=== PATIENT | male | born 1960 | race Caucasian/White ===

== ENCOUNTER 2017-03-13 20:58 | Observation (INO) | payer OTHER ==
[~2017-03-13] VITALS: Ht 170.2 cm; Wt 72.7 kg
--- NOTE | 2017-03-13 21:53 | ED ORDER SUMMARY ---
..... Patient: CONNIE MISTRY OrderSheet [facility] VisitID: [id number] [place] [address] 56y, M Registration Date/Time: 03/13/2017 ORDER SHEET Weight: 72.5 kg (stated) Allergies: No Known Drug Allergy GENERAL ORDERS: Chest 2V Urgent (21:17 03/13/2017 PHutchinson DO) (Ack 21:18 RKaruga) Food Service Specialist (Continuous) (21:17 03/13/2017 PHutchinson DO) (21:17 RKaruga) UA-Culture if indicated Urgent (21:17 03/13/2017 PHutchinson DO) (Ack 21:18 RKaruga) (22:03 Temitope R.N.) Cardiac Panel Stat (21:17 03/13/2017 PHutchinson DO) (Ack 21:18 RKaruga) BNP Urgent (21:17 03/13/2017 PHutchinson DO) (Ack 21:18 RKaruga) D-Dimer Urgent (21:17 03/13/2017 PHutchinson DO) (Ack 21:18 RKaruga) Amylase Urgent (21:17 03/13/2017 PHutchinson DO) (Ack 21:18 RKaruga) PT with INR Urgent (21:17 03/13/2017 PHutchinson DO) (Ack 21:18 RKaruga) Pulse oximeter (21:17 03/13/2017 PHutchinson DO) (21:17 RKaruga) EKG - ER Stat (21:17 03/13/2017 PHutchinson DO) (21:17 RKaruga) Vitals (21:17 03/13/2017 PHutchinson DO) (22:13 Jimmieou R.N.) Call (Place call to): (Dr Pisano) (21:52 03/13/2017 PHutchinson DO) (22:22 RKaruga) MEDICATION ORDERS: NitroGLYCERIN Paste Topical 1.5 in. (NOW, to ) (21:49 03/13/2017 PHutchinson DO) (22:03 Portiambou R.N.) Lovenox Subcut 80 mg (HIGH ALERT MEDICATION, NOW) (21:54 03/13/2017 Saranya VIGIL) (22:07 Flako R.N.) IV FLUIDS: IV NS : initial bolus 500 mL (1000 mL/hr), then 250 mL/hr for X2 (NOW) (21:17 03/13/2017 Saranya VIGIL) (21:25 Flako R.N.) ORDER SHEET NOTES: [Electronically signed by Conrad Ponce DO (00:15 03/14/2017)] [Electronically signed by Aung Rabago R.N. (19:09 03/14/2017)] [Electronically locked/signed by Aung Rabago R.N. (19:09 03/14/2017)]
--- NOTE | 2017-03-13 21:53 | ED ORDER SUMMARY ---
..... Patient: CONNIE MISTRY OrderSheet [facility] VisitID: [id number] [place] [address] 56y, M Registration Date/Time: 03/13/2017 ORDER SHEET Weight: 72.5 kg (stated) Allergies: No Known Drug Allergy GENERAL ORDERS: Chest 2V Urgent (21:17 03/13/2017 PHutchinson DO) (Ack 21:18 RKaruga) Shoe Lay Out Planner (Continuous) (21:17 03/13/2017 PHutchinson DO) (21:17 RKaruga) UA-Culture if indicated Urgent (21:17 03/13/2017 PHutchinson DO) (Ack 21:18 RKaruga) (22:03 Temitope R.N.) Cardiac Panel Stat (21:17 03/13/2017 PHutchinson DO) (Ack 21:18 RKaruga) BNP Urgent (21:17 03/13/2017 PHutchinson DO) (Ack 21:18 RKaruga) D-Dimer Urgent (21:17 03/13/2017 PHutchinson DO) (Ack 21:18 RKaruga) Amylase Urgent (21:17 03/13/2017 PHutchinson DO) (Ack 21:18 RKaruga) PT with INR Urgent (21:17 03/13/2017 PHutchinson DO) (Ack 21:18 RKaruga) Pulse oximeter (21:17 03/13/2017 PHutchinson DO) (21:17 RKaruga) EKG - ER Stat (21:17 03/13/2017 PHutchinson DO) (21:17 RKaruga) Vitals (21:17 03/13/2017 PHutchinson DO) (22:13 Jimmieou R.N.) Call (Place call to): (Dr Pisano) (21:52 03/13/2017 PHutchinson DO) (22:22 RKaruga) MEDICATION ORDERS: NitroGLYCERIN Paste Topical 1.5 in. (NOW, to ) (21:49 03/13/2017 PHutchinson DO) (22:03 Portiambou R.N.) Lovenox Subcut 80 mg (HIGH ALERT MEDICATION, NOW) (21:54 03/13/2017 Saranya VIGIL) (22:07 Flako R.N.) IV FLUIDS: IV NS : initial bolus 500 mL (1000 mL/hr), then 250 mL/hr for X2 (NOW) (21:17 03/13/2017 Saranya VIGIL) (21:25 Flako R.N.) ORDER SHEET NOTES: [Electronically signed by Conrad Ponec DO (00:15 03/14/2017)] [Electronically signed by Aung Rabago R.N. (19:09 03/14/2017)] [Electronically locked/signed by Aung Rabago R.N. (19:09 03/14/2017)]
--- NOTE | 2017-03-13 21:53 | ED CLINICAL REPORT ---
Clinical Report - Physicians/Mid Levels [facility] [address] [place] [address] 03/13/2017 21:02 Patient: CONNIE MISTRY Time Seen: 21:15. Arrived- By ambulance. Historian- patient and EMS personnel. HISTORY OF PRESENT ILLNESS Chief Complaint: CHEST DISCOMFORT. At its maximum, severity described as severe. When seen in the E.D., it was almost gone. Modifying factors- worsened by exertion. Relieved by rest. It is described as pressure and it is described as located in the central chest area. No radiation. This started about 5 days ago intermittently, but last episode occured about 2 1/2 hours ago and is still present. It was gradual in onset and has been waxing/waning. Onset during moderate exertion. No nausea, vomiting, difficulty breathing or diaphoresis. Similar symptoms previously: Recent medical care: Not recently seen/assessed. REVIEW OF SYSTEMS No fever, chills, cough, pedal edema or calf pain. No fainting episodes, headache, sore throat, blurred vision or abdominal pain. No black stools, difficulty with urination, skin rash, enlarged lymph nodes or bloody stools. All systems otherwise negative, except as recorded above. PAST HISTORY See nurses notes. No history of aortic disease, heart rhythm problems or pulmonary embolism. ( Chest pain syndrome (reportedly had low risk stress test about 2 years ago)). SOCIAL HISTORY Smoker- current status unknown. No alcohol use or drug use. Is a local resident. ADDITIONAL NOTES The nursing notes have been reviewed. PHYSICAL EXAM Vital Signs: 03/13/2017 21:08 BP: 154/84. HR: 65. RR: 19. O2 saturation: 98%. Temp: 98.2 F. Pain level now: 09/19. Appearance: Alert. Oriented X3. No acute distress. Eyes: Pupils equal, round and reactive to light. Eyes normal inspection. No scleral icterus or pale conjunctivae. ENT: Pharynx normal. Neck: Normal inspection. Neck supple. CVS: Normal heart rate and rhythm. Heart sounds normal. Pulses normal. Respiratory: No respiratory distress. Breath sounds normal. No rales, rhonchi or wheezes. Abdomen: Soft and nontender. No mass. Back: Normal external inspection. Skin: Skin warm and dry. Normal skin color. Normal skin turgor. Extremities: Extremities exhibit normal ROM. No calf tenderness. No lower extremity edema. Neuro: Oriented X 3. No motor deficit. LABS, X-RAYS, AND EKG EKG: EKG time: (21:12). Normal sinus rhythm. Rate: 60. Normal P waves. Normal RUTH. Normal QRS complex. Normal axis. Normal ST and T waves. The study has been interpreted contemporaneously by me. The EKG appears to be a good tracing. Rhythm Strip #1: Normal sinus rhythm. Regular rhythm. Narrow QRS complexes. No ectopy. Chest X-ray: No acute disease. Normal lung markings present. Normal heart size. Mediastinum normal. Great vessels normal. No infiltrate. Views: PA and lateral. Technique: good. The X-rays were interpreted contemporaneously by me. Laboratory Tests: CBC w Diff: (MELINDA: 03/13/2017 21:12) ( [facility]13[facility] 21:28) Final results Test Result Flag Units (Reference) WHITE BLOOD COUNT 8.4 K/uL (4.5-11.5) RED BLOOD COUNT 4.49 L M/uL (4.50-5.90) HEMOGLOBIN 14.9 gm/dL (13.5-17.5) HEMATOCRIT 43.3 % (41.0-53.0) MEAN CELL VOLUME 96 fL (80-100) MEAN CORPUSCULAR HGB 33 pg (26-34) MEAN CORPUSCULAR HGB CONC 34 g/dL (31-37) RED CELL DISTRIBUTION WIDTH 12.4 % (11.6-14.8) PLATELET COUNT 222 K/uL (150-400) NEUTROPHIL % 60.1 % (50-75) LYMPH % 26.5 % (25-40) MONO % 8.6 % (3-14) EOSINOPHIL % 3.8 % (0-4) BASOPHIL % 1.0 % (0-2) PT with INR: (MELINDA: 03/13/2017 21:12) ( [facility] 03/13/2017 21:39) Final results Test Result Flag Units (Reference) INR 0.9 (0.8-1.2) Low Intensity Therapy: INR 1.5-2.0 PT range 18.5-23.1Mod.Intensity Therapy: INR 2.0-3.0 PT range 23.1-31.5High Intensity Therapy: INR 2.5-3.5 PT range 27.4-35.5High Intensity Therapy 2: INR 3.0-4.0 PT range 31.5-39.3 D-DIMER QUANTITATIVE < 0.27 L ug/mLFEU (0.27-0.52) The primary value of this quantitative assay relates toits negative predictive value (i.e. exclusion) of pulmonaryembolism/deep vein thrombosis/DIC.Elevated levels of d-dimer may also occur with:, age, cancer, inflammation, liver disease,post-op, infection, hematoma, coronary disease, peripheralarteriopathy, bleeding disorders and thrombolytic treatment.Results should be correlated with other clinical andradiological data.Testing Methodology: Latex Immunoassay BNP: (MELINDA: 03/13/2017 21:12) ( [facility] 03/13/2017 21:47) Final results Test Result Flag Units (Reference) B-TYPE NATRIURETIC PEPTIDE 97.4 pg/ml (5-100) Amylase: (MELINDA: 03/13/2017 21:12) ( [facility] 03/13/2017 21:39) Final results Test Result Flag Units (Reference) AMYLASE 40 U/L (25-115) CHEM 13 PANEL: (MELINDA: 03/13/2017 21:12) ( [facility] 03/13/2017 21:43) Final results Test Result Flag Units (Reference) GLUCOSE 97 mg/dL (70-110) BUN 12 mg/dL (7-18) CREATININE 0.8 mg/dL (0.6-1.3) Estimated GFR >60 mL/min Estimated GFR- >60 mL/min Note: Persistent reduction over 3 months in eGFR<60 mL/min/1.73 m2 defines CKD. Patients with eGFR values>=60 mL/min/1.73 m2 may also have CKD if evidence ofpersistent proteinuria. Additional information may be foundat [email or web address].org. SODIUM 143 mmol/L (136-145) POTASSIUM 3.9 mmol/L (3.5-5.1) CHLORIDE 106 mmol/L (98-107) CARBON DIOXIDE 28 mmol/L (21-32) CALCIUM 9.0 mg/dL (8.5-10.1) TOTAL PROTEIN 6.7 g/dL (6.4-8.2) ALBUMIN 3.6 g/dL (3.3-5.0) BILIRUBIN, TOTAL 0.3 mg/dL (0.0-1.0) ALKALINE PHOSPHATASE 105 U/L (46-116) AST (SGOT) 23 U/L (15-37) ALT (SGPT) 24 U/L (12-78) MAGNESIUM 2.0 mg/dL (1.8-2.4) CPK 107 U/L (24-260) TROPONIN I 0.65 ng/mL (0.00-1.5) TROPONIN REFERENCE RANGE:<0.1 NEGATIVE0.1-1.5 INDETERMINANT>1.5 POSITIVE . Pulse Oximetry: 03/13/2017 21:08 O2 saturation: 98%. (FIO2 - room air). Interpretation: normal. PROGRESS AND PROCEDURES Course of Care: Nitroglycerin 1.5 inches paste inches. ASA 325 mg taken prior to arrival PO given. Lovenox 80 mg subQ given. Patient is stable. The patient's symptoms are now gone. Physical exam findings are improved. Discussed case with hospitalist, (Shi call returned 22:28). Reviewed test results. Agreed upon treatment plan. Call placed to patient's primary care provider Aliya call placed 22:19 call returned 22:22. Patient/family counseled. Old ED records reviewed. Observation orders written. Disposition: Observation in Acute Care. Condition: stable. CLINICAL IMPRESSION Chest pain characterized as "discomfort" .12 lead EKG performed. indeterminate troponin I. (Electronically signed by Conrad Ponce DO 03/14/2017 0:15)
--- NOTE | 2017-03-13 21:53 | ED NURSING NOTES ---
Clinical Report - Nurses [facility] [place] [address] 03/13/2017 21:02 Patient: CONNIE MISTRY TRIAGE Triage time 21:10. Acuity: LEVEL 2. Chief Complaint: CHEST PAIN and DISCOMFORT. --21:15 Sheriff Klein R.N. 21:08 03/13/17. BP: 154/84. HR: 65. RR: 19 (regular). O2 saturation: 98%. Temp: 98.2 F. Pain level now: 09/19. --21:15 Sheriff Klein R.N. Weight: 72.5 kg stated. Height/Length: 67 inches Per Patient. BMI: 25.1. --21:09 Sheriff Klein R.N. Medications None. --21:14 Sheriff Klein R.N. Allergies No Known Drug Allergy. --21:14 Sheriff Klein R.N. History Arrived by EMS. Historian: patient. Unaccompanied. Onset. (2 1/2 hours ago). ( Patient was doing yard work, suddenly felt severe chest pressure 10/10. Pain 1/10 now. Took Asprin 424mg.). SURGERY HX: Neck surgery. SOCIAL HX: Light tobacco smoker- less than 1/2 a pack per day. No alcohol use or drug use. FALL RISK ASSESSMENT: Fall risk assessment completed. No fall risk identified. NUTRITIONAL RISK ASSESSMENT: The nutritional risk assessment revealed no deficiencies. FUNCTIONAL ASSESSMENT: Functional assessment: no impairments noted. LEARNING NEEDS ASSESSMENT: The learning needs assessment revealed no barriers. SKIN INTEGRITY ASSESSMENT: Skin integrity risk assessment completed. No skin integrity risk identified. --21:15 Sheriff Klein R.N. PROBLEMS: Lifestyle / Substance Problems. Atypical Chest Pain. Chest discomfort. --21:14 Sheriff Klein R.N. PHYSICAL ASSESSMENT Ambulatory to room. Patient gowned. GENERAL / NEURO / PSYCH: Alert. Oriented X 4. Appears in no acute distress. HEENT: Mucous membranes are pink. RESPIRATORY: Respirations not labored. CVS: Pulses within normal limits. Capillary refill less than 2 seconds. SKIN: Skin is warm and dry. --21:15 Sheriff Klein R.N. NURSING PROGRESS NOTES Patient gowned. Head of bed elevated. Two patient identifiers checked. Call light placed in reach. Side rails up x 2. Bed placed in lowest position. Brakes of bed on. --21:17 Sheriff Klein R.N. 21:14 03/13/2017 Site #1 started via IV in the left antecubital space with an 20g angiocath, with aseptic technique and good blood return; one attempt. Blood drawn: rainbow set. Labeled in the presence of the patient and sent to the lab. Saline lock flushed with 10 mL saline. --21:19 Sheriff Klein R.N. EKG time: (21:12). EKG was performed by a tech and shown to the ED physician. --21:24 Virginia Easley 21:25 03/13/2017 Started bag #1 500 mL IV Fluids IV NS (Saline); bolus of 500 mL wide open via site #1 via IV pump. Allergies verified and confirmed 5 rights. IV patency established. IV site checked: no pain, redness, or swelling. IV flushed thoroughly pre- and post-medication administration. --21:25 Sheriff Klein R.N. 22:03 03/13/2017 NITROGLYCERIN PASTE Topical Paste 1.5 inch. Applied to the right chest. Allergies verified and confirmed 5 rights. --22:03 Sheriff Klein R.N. 22:07 03/13/2017 Lovenox (Enoxaparin Sodium) Subcutaneous 80 mg given. Given in the right upper arm. Allergies verified and confirmed 5 rights. --22:07 Sheriff Klein R.N. 22:34 03/13/17. BP: 137/81. HR: 59. RR: 18. O2 saturation: 97%. --22:34 Sheriff Klein R.N. DISPOSITION / DISCHARGE Admitted (2352 PM). Transported via stretcher by nurse and transport team with IV. Report was given to a nurse via a phone call. Report included patient's care, treatment, medications, reviewed medication reconcilliation, and condition (including any recent changes or anticipated changes). All questions were answered. Report was acknowledged. Patient's personal items include: shirt, pants, socks and shoes; items were placed in belongings bag, given to the patient and transported with the patient. --23:53 Sheriff Klein R.N. 23:51 03/13/17. BP: 138/78. HR: 63. RR: 20. O2 saturation: 99%. --23:53 Sheriff Klein R.N. Locked/Released at 03/14/2017 19:09 by Aung Rabago R.N.
--- NOTE | 2017-03-13 22:07 | DIAGNOSTIC IMAGING REPORT ---
PROCEDURE: XR CHEST 2 VIEW INDICATION: CHEST PAIN TECHNIQUE: PA and lateral view. COMPARISON: None. FINDINGS: Lungs are clear. Cardiovascular structures are normal. Surgical fusion of the lower cervical spine. Mild degenerative changes of the spine. IMPRESSION: 1. Negative chest.
--- NOTE | 2017-03-14 00:02 | History & Physical Report ---
History Chief Complaint Chest pain History of Present Illness This is a [id number] white male who developed chest pain for last 4 days usually twice a day associated with activity pain is located in the center of the severity of 4 out of pain lasting up to 10 minutes at a time finding the patient decided to come to emergency because chest pain continue to happen. Chest pain is associated with shortness of breath and dizziness and sweats but no nausea no vomiting no palpitations Patient History 1. HTN (hypertension) 2. H/O neck surgery 3. H/O knee surgery 4. CTS (carpal tunnel syndrome) Social History Patient is , has 3 kids, lives with his . Smoking: One pack a day for 30 years, alcohol use: Social, illicit drug: None. Family History Relation not specified for: Heart Disease Hypertension Medications and Allergies Medications Home medications: None Current Medications Sig/Shaina Start time Last Medication Dose Route Stop Time Status Admin Atorvastatin Calcium 10 MG QPM 03/14 1800 AC PO Aspirin 325 MG DAILY 03/14 900 AC PO Enoxaparin Sodium 70 MG BID 03/14 900 AC SC Famotidine 20 MG Q12HR 03/14 900 AC PO Metoprolol Tartrate 25 MG DAILY 03/14 900 AC PO Nitroglycerin 0.5 GM Q6HR 03/14 0000 AC TOP Allergies Coded Allergies: NKA (03/13/17) Review of Systems Other No recent weight changes, no difficulty with vision or hearing, no sore throat or congestion or cough or runny nose, no nausea or vomiting no indigestion or abdominal pain normal regular bowel movements, no dysuria frequency or incontinence, complains of back pain and myalgia which are chronic, no headaches or dizziness or tingling or numbness no localized weakness or syncope Physical Exam General Appearance Alert, Oriented X3, No acute distress HEENT Normal exam Lungs Clear to auscultation Neck Supple, No JVD, No thyromegaly, 2+ carotid pulse wo bruit Cardiovascular Regular rate and rhythm, Normal S1 and S2, No murmurs, gallops, rubs Abdomen Normal bowel sounds, Soft, No tenderness Extremities No cyanosis, No edema, Normal pulses, No tenderness Skin No Rashes, No Significant Lesions Neurological Normal speech, Reflexes 2+ and equal, Cranial nerves intact, Strength 5/5 x4 ext's Psych/Mental Status Mental status normal, Mood normal LAB Results Laboratory Tests 03/13 Chemistry Plasma Sodium (136 - 145 mmol/L) 143 Plasma Potassium (3.5 - 5.1 mmol/L) 3.9 Plasma Chloride (98 - 107 mmol/L) 106 CO2 (Enzymatic) (21 - 32 mmol/L) 28 BUN (7 - 18 mg/dL) 12 Creatinine (0.6 - 1.3 mg/dL) 0.8 Est GFR ( Amer) (mL/min) >60 Est GFR (Non-Af Amer) (mL/min) >60 Glucose (70 - 110 mg/dL) 97 Plasma Calcium (8.5 - 10.1 mg/dL) 9.0 Plasma Magnesium (1.8 - 2.4 mg/dL) 2.0 Total Bilirubin (0.0 - 1.0 mg/dL) 0.3 AST (15 - 37 U/L) 23 ALT (12 - 78 U/L) 24 Alkaline Phosphatase (46 - 116 U/L) 105 Creatine Kinase (24 - 260 U/L) 107 Troponin (0.00 - 1.5 ng/mL) 0.65 B-Natriuretic Peptide (5 - 100 pg/ml) 97.4 Total Protein (6.4 - 8.2 g/dL) 6.7 Albumin (3.3 - 5.0 g/dL) 3.6 Amylase (25 - 115 U/L) 40 Coagulation INR (0.8 - 1.2) 0.9 D-Dimer, Quantitative (0.27 - 0.52 ug/mLFEU) < 0.27 Hematology WBC (4.5 - 11.5 K/uL) 8.4 RBC (4.50 - 5.90 M/uL) 4.49 Hgb (13.5 - 17.5 gm/dL) 14.9 Hct (41.0 - 53.0 %) 43.3 MCV (80 - 100 fL) 96 MCH (26 - 34 pg) 33 RDW (11.6 - 14.8 %) 12.4 Neut % (Auto) (50 - 75 %) 60.1 Lymph % (Auto) (25 - 40 %) 26.5 [place] % (Auto) (3 - 14 %) 8.6 Eos % (Auto) (0 - 4 %) 3.8 Baso % (Auto) (0 - 2 %) 1.0 Plt Count, EDTA (150 - 400 K/uL) 222 PUBS MCHC (31 - 37 g/dL) 34 Assessment and Plan Problem List 1. Acute coronary syndrome Plan Waiting to start patient on aspirin Lovenox and Lipitor and metoprolol and order cardiac enzymes series. Consider regular exercise stress test once the cardiac enzymes series are negative 2. HTN (hypertension) Plan We'll start metoprolol 25 mg and monitor blood pressure
[2017-03-14 00:07] VITALS: BP 130/91
[2017-03-14 03:45] VITALS: BP 123/68
[2017-03-14 06:49] VITALS: BP 116/67
--- NOTE | 2017-03-14 07:24 | Progress Note ---
Subjective General Chest pain admit w/ exertional CP at home over the last 3 days. Troponins indeterminant x2 and other labs ok. Constitutional Denies: Fever, Chills, Sweats, Weakness, Malaise, Other. Eyes Denies: Pain, Vision Change, Conjunctival Inflammation, Eyelid Inflammation, Redness. ENT Denies: Ear Pain, Ear Discharge, Nose Pain, Nasal Discharge, Nasal Congestion, Mouth Pain, Mouth Swelling, Throat Pain, Throat Swelling. Respiratory SOB w/exertion. Denies: Cough, Dry, Wheezing, Hemoptysis, Pleuritic Pain, Sputum. Cardiovascular Chest Pain (resolved), Light-headedness. Denies: Palpitations, Orthopnea, PND, Edema. Gastrointestinal Denies: Nausea, Vomiting, Abdominal Pain, Diarrhea, Constipation, Melena, Hematochezia. Genitourinary Denies: Dysuria, Frequency, Incontinence, Hematuria, Retention. Skin Denies: Rash, Lesions, Jaundice, Bruising. Neurological Denies: Weakness, Numbness, Incoordination, Change in speech, Confusion, Seizures. Physical Exam Vital Signs / I&Os Vital Signs Date Time Temp Pulse Resp B/P Pulse O2 O2 Flow FiO2 Ox Delivery Rate 03/14 0649 98.4 53 18 116/67 96 Room Air 03/14 0345 98.8 53 18 123/68 94 Room Air 03/14 0007 97.7 64 18 130/91 96 Room Air General Appearance Alert, Oriented X3, Cooperative, No acute distress HEENT Normal exam, Moist mucous membranes Lungs Normal exam, Clear to auscultation Neck Supple, No JVD, No lymphadenopathy, 2+ carotid pulse wo bruit Cardiovascular Normal exam, Regular rate and rhythm, Normal S1 and S2, No murmurs, gallops, rubs Abdomen Normal exam, Normal bowel sounds, Soft, No tenderness Extremities Normal exam, No cyanosis, No clubbing, No edema, Normal pulses Skin No Rashes, No Breakdown Neurological Normal exam, Strength 5/5 x4 ext's, No lateralizing signs Psych/Mental Status Mental status normal, Mood normal LAB Results Laboratory Tests 03/13 03/13 03/13 03/14 03/14 2112 2112 2112 0535 0535 Chemistry Plasma Sodium (136 - 145 mmol/L) 143 144 Plasma Potassium (3.5 - 5.1 mmol/L) 3.9 3.9 Plasma Chloride (98 - 107 mmol/L) 106 108 CO2 (Enzymatic) (21 - 32 mmol/L) 28 29 BUN (7 - 18 mg/dL) 12 11 Creatinine (0.6 - 1.3 mg/dL) 0.8 0.8 Est GFR ( Amer) (mL/min) >60 >60 Est GFR (Non-Af Amer) (mL/min) >60 >60 Glucose (70 - 110 mg/dL) 97 92 Plasma Calcium (8.5 - 10.1 mg/dL) 9.0 8.5 Plasma Magnesium (1.8 - 2.4 mg/dL) 2.0 Total Bilirubin (0.0 - 1.0 mg/dL) 0.3 AST (15 - 37 U/L) 23 ALT (12 - 78 U/L) 24 Alkaline Phosphatase (46 - 116 U/L) 105 Creatine Kinase (24 - 260 U/L) 107 Troponin (0.00 - 1.5 ng/mL) 0.65 0.81 B-Natriuretic Peptide (5 - 100 pg/ml) 97.4 Total Protein (6.4 - 8.2 g/dL) 6.7 Albumin (3.3 - 5.0 g/dL) 3.6 Triglycerides (30 - 200 mg/dL) 84 Cholesterol (140 - 200 mg/dL) 120 LDL Cholesterol, Calc (mg/dL) 64 HDL Cholesterol (32 - 96 mg/dL) 40 LDL/HDL Ratio 1.6 Cholesterol/HDL Ratio 3.0 Coronary Risk Interp (0.4 - 1.0) 0.6 Amylase (25 - 115 U/L) 40 Coagulation INR (0.8 - 1.2) 0.9 D-Dimer, Quantitative (0.27 - 0.52 ug/mLFEU) < 0.27 Hematology WBC (4.5 - 11.5 K/uL) 8.4 8.2 RBC (4.50 - 5.90 M/uL) 4.49 4.30 Hgb (13.5 - 17.5 gm/dL) 14.9 14.1 Hct (41.0 - 53.0 %) 43.3 41.5 MCV (80 - 100 fL) 96 97 MCH (26 - 34 pg) 33 33 RDW (11.6 - 14.8 %) 12.4 12.2 Neut % (Auto) (50 - 75 %) 60.1 56.2 Lymph % (Auto) (25 - 40 %) 26.5 29.1 [place] % (Auto) (3 - 14 %) 8.6 10.5 Eos % (Auto) (0 - 4 %) 3.8 3.7 Baso % (Auto) (0 - 2 %) 1.0 0.5 Plt Count, EDTA (150 - 400 K/uL) 222 212 PUBS MCHC (31 - 37 g/dL) 34 34 Assessment and Plan Problem List 1. Chest pain Plan NM exercise stress test today. Discussed w/ Dr. sOullivan. Echocardiogram 2. INDETERMINATE TROPININ I Plan Repeat CK and Troponin 1 more time
[2017-03-14 10:55] VITALS: BP 133/80
--- NOTE | 2017-03-14 12:44 | Provider's Discharge Care Plan ---
Problem, Goal, Plan Problem List 1. Acute coronary syndrome Goals: Improve disease control Instructions: TRANSFER TO [facility]- CARDIOLOGY.
--- NOTE | 2017-03-14 12:44 | Provider's Discharge Care Plan ---
Problem, Goal, Plan Problem List 1. Acute coronary syndrome Goals: Improve disease control Instructions: TRANSFER TO [facility]- CARDIOLOG[facility].
--- NOTE | 2017-03-14 15:46 | DIAGNOSTIC IMAGING REPORT ---
REFERRING PHYSICIAN/PROVIDER: Florian Osullivan MD CONSULTING PLASTER PATTERNMAKER: Steve Mares MD PROCEDURE: M-mode 2D echocardiography with spectral and color flow Doppler TECHNICAL QUALITY: Adequate image quality. INDICATION: CP with exertion RHYTHM DURING PROCEDURE: The patient was in normal sinus rhythm during the exam. INTERPRETATIONS: LEFT VENTRICLE: The left ventricular chamber size but the left ventricular wall is mildly increased in thickness. The left ventricular systolic function is normal. There is no evidence of focal wall motion abnormalities. The ejection fraction is estimated at 65-70%. LV diastolic function is within normal limits. RIGHT VENTRICLE: The right ventricular chamber size and systolic function are both within normal limits. ATRIA: The interatrial septum is intact. The left atrial chamber size is within normal limits. The right atrial chamber size is within normal limits. MITRAL VALVE: There is mild thickening of the mitral leaflets. There is mild mitral annular calcification. There is mild to moderate mitral regurgitation. AORTIC VALVE: The aortic valve is trileaflet and opens well. There is no aortic regurgitation. TRICUSPID VALVE: The tricuspid valve is thin and pliable. There is no evidence of tricuspid regurgitation. The right ventricular systolic pressure could not be measured due to a lack of a measurable TR jet velocity. PULMONIC VALVE: The pulmonic valve is not well visualized but it appears grossly normal. There is trace pulmonic regurgitation. GREAT VESSELS: The aortic root is normal in size. The IVC is of normal size and collapses more than 50% during respiration. This is consistent with a low right atrial pressure of 3 mmHg. The ascending aorta is not well visualized. PERICARDIUM: There is no evidence of pericardial effusion. IMPRESSION: 1. There is normal LV and RV systolic function. LV wall motion is normal. 2. The biatrial chamber sizes are within normal limits. 3. RV systolic pressure could not be assessed due to a lack of a measurable TR jet velocity. 4. There is mild to moderate mitral regurgitation otherwise there is no evidence of significant valvular heart disease. 5. The aortic root is normal in size.
--- NOTE | 2017-03-14 19:10 | ED DISCHARGE INSTRUCTIONS ---
Patient: CONNIE MISTRY General Instructions [facility] VisitID: [id number] [address] [place] [address] 56y, M Registration Date/Time: 03/13/2017 Chest pain characterized as "discomfort" .12 lead EKG performed. indeterminate troponin I. (Electronically signed by Conrad Ponce DO 03/14/2017 0:15)
--- NOTE | 2017-03-14 19:10 | ED MAR SUMMARY ---
..... Medication Administration Record [facility] [address] [place] [address] Patient: CONNIE MISTRY Visit ID: [id number] 56y, M Weight: 72.5 kg Height/Length: 67 in BMI: 25.1 ALLERGIES: No Known Drug Allergy Start 21:25 03/13/2017 Sheriff Klein R.N. Medication Administered: IV NS (SALINE), Dose: IV Fluids, Bolus: 500 mL wide open, Dispensed: 500 mL bag, Site: #1 left AC. Medication Ordered: IV NS : initial bolus 500 mL (1000 mL/hr), then 250 mL/hr for X2 (NOW). Given 22:03 03/13/2017 Sheriff Klein R.N. Medication Administered: NITROGLYCERIN PASTE [TOPICAL], Dose: 1.5 in. Paste Topical. Medication Ordered: NitroGLYCERIN Paste Topical 1.5 in. (NOW, to ). Given 22:07 03/13/2017 Sheriff Klein R.N. Medication Administered: LOVENOX [SUBCUTANEOUS] (ENOXAPARIN SODIUM), Dose: 80 mg Subcutaneous. Medication Ordered: Lovenox Subcut 80 mg (HIGH ALERT MEDICATION, NOW).
--- NOTE | 2017-03-14 19:10 | ED MED RECONCILIATION SUMMARY ---
Patient: CONNIE MISTRY Medication Reconciliation Report [facility] VisitID: [id number] [address] [place] [address] 56y, M Registration Date/Time: 03/13/2017 Weight: 72.5 kg Height/Length: 67 in. BMI: 25.1 ALLERGIES: No Known Drug Allergy The patient's Home Medications are listed below: NONE. The source(s) of the original Home Medication information: Not obtained. The following Medications were given to the patient in the Emergency Department: IV NS IV Fluids bolus 500 mL wide open, administered: 03/13/2017 9:25:00 PM NITROGLYCERIN PASTE [TOPICAL] Topical 1.5 in., administered: 03/13/2017 10:03:00 PM Lovenox [Subcutaneous] Subcutaneous 80 mg, administered: 03/13/2017 10:07:00 PM The following Medications were prescribed to the patient: None.
--- NOTE | 2017-03-14 19:10 | ED MAR SUMMARY ---
..... Medication Administration Record [facility] [address] [place] [address] Patient: CONNIE MISTRY Visit ID: [id number] 56y, M Weight: 72.5 kg Height/Length: 67 in BMI: 25.1 ALLERGIES: No Known Drug Allergy Start 21:25 03/13/2017 Sheriff Klein R.N. Medication Administered: IV NS (SALINE), Dose: IV Fluids, Bolus: 500 mL wide open, Dispensed: 500 mL bag, Site: #1 left AC. Medication Ordered: IV NS : initial bolus 500 mL (1000 mL/hr), then 250 mL/hr for X2 (NOW). Given 22:03 03/13/2017 Sheriff Klein R.N. Medication Administered: NITROGLYCERIN PASTE [TOPICAL], Dose: 1.5 in. Paste Topical. Medication Ordered: NitroGLYCERIN Paste Topical 1.5 in. (NOW, to ). Given 22:07 03/13/2017 Sheriff Klein R.N. Medication Administered: LOVENOX [SUBCUTANEOUS] (ENOXAPARIN SODIUM), Dose: 80 mg Subcutaneous. Medication Ordered: Lovenox Subcut 80 mg (HIGH ALERT MEDICATION, NOW).
--- NOTE | 2017-03-14 19:10 | ED MED RECONCILIATION SUMMARY ---
Patient: CONNIE MISTRY Medication Reconciliation Report [facility] VisitID: [id number] [address] [place] [address] 56y, M Registration Date/Time: 03/13/2017 Weight: 72.5 kg Height/Length: 67 in. BMI: 25.1 ALLERGIES: No Known Drug Allergy The patient's Home Medications are listed below: NONE. The source(s) of the original Home Medication information: Not obtained. The following Medications were given to the patient in the Emergency Department: IV NS IV Fluids bolus 500 mL wide open, administered: 03/13/2017 9:25:00 PM NITROGLYCERIN PASTE [TOPICAL] Topical 1.5 in., administered: 03/13/2017 10:03:00 PM Lovenox [Subcutaneous] Subcutaneous 80 mg, administered: 03/13/2017 10:07:00 PM The following Medications were prescribed to the patient: None.
--- NOTE | 2017-03-14 19:10 | ED DISCHARGE INSTRUCTIONS ---
Patient: CONNIE MISTRY General Instructions [facility] VisitID: [id number] [address] [place] [address] 56y, M Registration Date/Time: 03/13/2017 Chest pain characterized as "discomfort" .12 lead EKG performed. indeterminate troponin I. (Electronically signed by Conrad Ponce DO 03/14/2017 0:15)
--- NOTE | 2017-03-26 10:26 | Discharge Summary ---
Discharge Summary Report Admit Date 03/13/17 Discharge Date 03/14/17 Admission Diagnosis Acute Coronary Syndrome Discharge Diagnosis Acute Coronary Syndrome Brief History Pt with 4 day hx of crescendo angina. Troponin indeterminant. Treamill +. Transfer to [facility] for angiogram Hospital Course As above General Appearance Alert, Oriented X3, Cooperative HEENT PERRLA, EOMI, Mucous membran moist/pink Lungs Clear to auscultation, Normal air movement Cardiovascular Regular Rate, Normal S1, Normal S2, No murmurs Abdomen Soft, No tenderness Neurological Strength at 5/5 X4 ext, Cranial nerves 3-12 NL Psych/Mental Status Mood NL, anxious and worried Lab/Imaging Indeterminant troponin + ex treadmill Discharge Instructions/Meds Transfer to [facility] for angiogram E&M Codes Discharge: Inpt <30 min spent/[id number]
--- NOTE | 2017-03-26 10:26 | Discharge Summary ---
Discharge Summary Report Admit Date 03/13/17 Discharge Date 03/14/17 Admission Diagnosis Acute Coronary Syndrome Discharge Diagnosis Acute Coronary Syndrome Brief History Pt with 4 day hx of crescendo angina. Troponin indeterminant. Treamill +. Transfer to [facility] for angiogram Hospital Course As above General Appearance Alert, Oriented X3, Cooperative HEENT PERRLA, EOMI, Mucous membran moist/pink Lungs Clear to auscultation, Normal air movement Cardiovascular Regular Rate, Normal S1, Normal S2, No murmurs Abdomen Soft, No tenderness Neurological Strength at 5/5 X4 ext, Cranial nerves 3-12 NL Psych/Mental Status Mood NL, anxious and worried Lab/Imaging Indeterminant troponin + ex treadmill Discharge Instructions/Meds Transfer to [facility] for angiogram E&M Codes Discharge: Inpt <30 min spent/[id number]
== END 2017-03-14 14:06 | disposition short-term general hospital (02) ==
LOC: ED SRH 20:58 → TRANS SRH 22:41 → ACUTE2 SRH 22:41
PROVIDERS: ADMIT Emergency Medicine
PROC: 4A02XM4 Measurement of Cardiac Total Activity, External Approach (ICD-10-PCS; principal; 2017-03-14)
DX: I24.9 Acute ischemic heart disease, unspecified (principal); R74.8 Abnormal levels of other serum enzymes; I10 Essential (primary) hypertension; F17.210 Nicotine dependence, cigarettes, uncomplicated
CPT/HCPCS: 29230; 90004; 90047; 90074; 90100; 90616; 91320; 91556; 92530; 92610; 92690; 92720; 94060; 95059